=== PATIENT | male | born 1960 | race Caucasian/White ===

== ENCOUNTER 2022-12-28 10:54 | Emergency (ER) | payer MEDICAID, SELFPAY ==
[2022-12-28] VITALS (8 sets, daily range): BP systolic 125–156; BP diastolic 75–99; PULSE 63–100; RESP 16–20; TEMP 36.8; O2SAT 98–100; BMI 24.1
--- NOTE | 2022-12-28 11:38 | EXP.UTC ---
Discharge Plan Disposition Patient Disposition: Still a Patient Condition: Good Prescriptions Prescriptions: New sulfamethoxazole-trimethoprim [Bactrim DS] 800-160 mg tablet 1 tab PO BID 14 Days Qty: 28 0RF Referrals Follow up/Referrals: Provider,Referral, [Primary Care Provider] - See instructions Activity Restrictions/Add. Instructions Additional Instructions/Restrictions: I spoke with Dr. Bradford with [facility] urology at the [facility] is working to make an appointment with you with their clinic at [facility] with urology. If you have any worsening symptoms please drive straight to the emergency department [facility] otherwise they will make an appointment for you within the next week. Please take antibiotics as prescribed if you have worsening abdominal pain or any other concerns please follow-up either with at our emergency department or at [facility] emergency department. Clinical Impressions Clinical Impression: Bladder mass, Hydronephrosis of right kidney, UTI (urinary tract infection) Instructions Patient Instructions: DI for Urinary Tract Infection (UTI), DI for Urinary Tract Infection in Children Discharge ED Provider: Keiko Luna [facility] General Chief complaint: Urogenital-Male Stated complaint: blood in urine Mode of Arrival: Ambulatory Source of Information: Patient Limitations: No Limitations Time Seen by Provider: 12/28/22 11:15 Description of Symptoms (Recalled from Triage Doc. by RN): Patient states he went to the [facility] and spoke with the nurse about his symptoms and they sent him here for evaluation. Complaint of frequent urination that comes and goes for about 1 month. States in the past week he began to have burning and blood in his urine. Denies any pain or discomfort at this time. HEENT Symptoms (Recalled from RN notes): No Resp Symptoms (Recalled from RN notes): No Skin Symptoms (Recalled from RN notes): No MS Symptoms (Recalled from RN notes): No Functional Status (Recalled from RN notes): wnl History of Present Illness Provider Complaint: Patient states that for the last month or so he has noticed blood in his urine on and off States that two weeks ago he noticed again and then it went away but for the last couple of days he has been having a little burning with urination and noticed his urine was mostly blood States that he thought it would go away but hasnt it has got worse States that he stopped by the [facility] today and told them about his symptoms and they recommended he come here for evaluation States that he is not having any back pain just one little sore spot on his right hip bone area but doesnt think it is from that, Denies abdominal pain denies fever, denies chills just having bloody urine and burning at times when he urinates Related Data Previous Rx's Medication Instructions Recorded sulfamethoxazole 800 1 tab PO BID 14 days #28 tabs 12/28/22 mg-trimethoprim 160 mg tablet (Bactrim DS) Allergies Allergy/AdvReac Type Severity Reaction Status Date / Time No Known Allergies Allergy Verified 12/28/22 11:18 Worker's Comp Is this a Worker's Comp case?: No PFSH [facility] Disclaimer: The information contained in this section may have been updated after the patient was seen, as this information can be updated by other users. Social History (Updated 12/28/22 @ 15:09 by Keiko Luna MD) Smoking Status: Current every day smoker alcohol intake: never current occupational status: other Travel in the last 8 weeks: None ROS Obtained: Yes All systems reviewed & no additional complaints except as documented and Yes Systems reviewed as appropriate & no additional complaints except as documented Constitutional Constitutional: Reports system reviewed and no additional complaints, except as documented, Reports as per HPI, Denies body ache, Denies chills and Denies fever(s) ENT Ears, Nose, Mouth,
[2022-12-28 11:46] LABS: Apearance,Urine Clear (Clear); Color,Urine Red (Yellow); Glucose,Urine (UA) 5.5 (Negative); Ketones,Urine 7.8 (Negative); Protein,Urine 3+ (Negative); Specific Gravity, Urine 1.005 (1.005-1.030)
[2022-12-28 11:47] LABS: Bilirubin,Urine 3+ (Negative); Blood, Urine 2+ (Negative); UTC Leukocyte Esterase,Urine 3+ (Negative); UTC Nitrate,Urine Positive (Negative); Urobilinogen,Urine 1 EU/dl (0.2)
--- NOTE | 2022-12-28 12:10 | PC.NURSE ---
BLADDER SCAN [id number]
--- NOTE | 2022-12-28 12:47 | PC.NURSE ---
Assumed patient care at this time.
--- NOTE | 2022-12-28 13:02 | CT_ITS ---
FINAL REPORT TECHNIQUE: Postcontrast axial images through the abdomen and pelvis were performed. This study was performed with techniques to keep radiation doses as low as reasonably achievable, (ALARA). Individualized dose reduction techniques using automated exposure control or adjustment of mA and/or kV according to the patient's size were employed. CLINICAL HISTORY: R hydro, bladder mass bedside US, hematuria FINDINGS: Abdomen: The lung bases are clear. There is a 34 mm probable cyst in the medial right hepatic lobe. The spleen is unremarkable. The adrenals are normal. The pancreas is unremarkable. The kidneys enhance appropriately. The aorta is normal in caliber. There is no free fluid. There is moderate right hydronephrosis and hydroureter. Mild vascular calcification is identified. Pelvis: The appendix is not identified. There is a soft tissue mass along the right lateral bladder wall measuring 7.3 x 3.5 cm. Heterogeneous material is seen in the bladder, may represent blood clot. There is a 14 mm medial right external iliac node worrisome for metastatic adenopathy. Small inguinal nodes are identified. There is a lipoma in the right back. There is no free fluid, free air, or abscess. 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 Right external iliac nodes worrisome for metastatic adenopathy. Mild right hydronephrosis and hydroureter. Reviewed, Interpreted and Dictated by Michael Skaggs III, MD Transcribed by Tamra Seay Authenticated and [facility]
--- NOTE | 2022-12-28 13:03 | HMH.EDGENADL ---
Discharge Plan Disposition Patient Disposition: Still a Patient Condition: Good Prescriptions Prescriptions: New sulfamethoxazole-trimethoprim [Bactrim DS] 800-160 mg tablet 1 tab PO BID 14 Days Qty: 28 0RF Referrals Follow up/Referrals: Provider,Referral, [Primary Care Provider] - See instructions Activity Restrictions/Add. Instructions Additional Instructions/Restrictions: I spoke with Dr. Bradford with [facility] urology at the transfer center transfer center is working to make an appointment with you with their clinic at [facility] with urology. If you have any worsening symptoms please drive straight to the emergency department [facility] otherwise they will make an appointment for you within the next week. Please take antibiotics as prescribed if you have worsening abdominal pain or any other concerns please follow-up either with at our emergency department or at [facility] emergency department. Clinical Impressions Clinical Impression: Bladder mass, Hydronephrosis of right kidney, UTI (urinary tract infection) Instructions Patient Instructions: DI for Urinary Tract Infection (UTI), DI for Urinary Tract Infection in Children Discharge ED Provider: Keiko Luna General Adult HPI General Chief complaint: Urogenital-Male Stated complaint: blood in urine Time Seen by Provider: 12/28/22 11:15 Mode of Arrival: Ambulatory Limitations: No Limitations Description of Symptoms (Recalled from ER Triage Doc. by RN): PT REPORTS INTERMITTENT BLOOD IN URINE. STARTED ABOUT 2-3 WEEKS AGO, RESOLVED. STARTED AGAIN SUNDAY NIGHT IN TO SUNDAY AM. REPORTS DIFFICULTY WITH STARTING TO URINATE, OCCASIONAL CLOTS AND MILD FLANK PAIN. REPORTS SOME BURNING WITH URINATION. History of Present Illness HPI narrative: Patient is a 62-year-old male who presents today with painless hematuria that started 2 to 3 weeks ago most recently a few days ago has some little bit of dysuria associated with this. Denies any weight loss any night sweats he also never goes to the doctor and has no medical problems that he is aware of. Was at the [facility] and was diagnosed with a UTI but given the concern for malignancy was sent to the emergency department for further evaluation and treatment. Related Data Previous Rx's Medication Instructions Recorded sulfamethoxazole 800 1 tab PO BID 14 days #28 tabs 12/28/22 mg-trimethoprim 160 mg tablet (Bactrim DS) Allergies Allergy/AdvReac Type Severity Reaction Status Date / Time No Known Allergies Allergy Verified 12/28/22 11:18 PFSH PFSH Disclaimer: The information contained in this section may have been updated after the patient was seen, as this information can be updated by other users. Social History Smoking Status: Current every day smoker alcohol intake: never current occupational status: other Travel in the last 8 weeks: None ROS Obtained: Yes All systems reviewed & no additional complaints except as documented Physical Exam General General appearance: alert and in no apparent distress Respiratory Respiratory exam: Present normal lung sounds bilaterally Cardiovascular Cardiovascular exam: Present regular rate; Absent tachycardia Abdominal Exam Abdominal exam: Present soft; Absent distention, tenderness, guarding, rebound, rigidity or normal bowel sounds Neurological Exam Neurological exam: Present alert and oriented X3 Medical Decision Making Maximilian Inquiry Pt receiving controlled substance: No Vital Signs: 12/28/22 10:55 12/28/22 12:01 12/28/22 12:30 Temperature 98.2 F 98.2 F Temperature Source Oral Oral Pulse Rate 69 Pulse Rate [Radial] 100 H 83 Respiratory Rate 18 18 18 Blood Pressure 125/82 Blood Pressure [Right Arm] 147/91 H 146/87 H Blood Pressure Mean 96 Blood Pressure Mean [Right Arm] 109 106 Blood Pressure Source [Right Arm] Automatic Cuff Automatic Cuff Blood Pressure Position [Right Arm] Sitting Sit
--- NOTE | 2022-12-28 13:07 | PC.NURSE ---
Rounded on patient; provided pillow, warm blanket, and TV remote. Nothing needed at this time. Call light within reach of patient
[2022-12-28 13:16] LABS: Basophils % 0.2 % (0.1-2.0); Chloride 88 mmol/L (98-107); Eosinophils % 0.3 % (0.1-12.0); Hematocrit 30.2 % (42.0-52.0); Hemoglobin 10.8 g/dL (14.1-18.0); Lymphocytes # 1.2 K/mm3 (0.7-4.5); Mean Corpuscular HGB Conc 35.8 g/dL (31.8-35.4); Mean Corpuscular Hemoglobin 32.6 pg (27.0-31.2); Mean Corpuscular Volume 91.1 fl (80-94); Mean Platelet Volume 9.8 fl (7.4-10.4); Monocytes # 0.8 K/mm3 (0.1-1.0); Monocytes % 10.4 % (1.7-9.3); Neutrophils # 5.4 K/mm3 (1.8-7.8); Platelet Count 268 K/mm3 (142-424); Red Blood Count 3.31 M/mm3 (4.60-6.20); Sodium 118 mmol/L (136-145); White Blood Count 7.4 K/mm3 (4.8-10.8)
[2022-12-28 13:18] LABS: Blood Urea Nitrogen 12 mg/dl (9-20); Creatinine Clearance Estimated 92 mL/min (50-200); Estimated Glomerular Filt Rate 114 ml/min (>60); GFR (African American) 137 ML/MIN (>60)
[2022-12-28 13:19] LABS: Alanine Aminotransferase 32 U/L (12-78); Albumin Level 4.2 g/dl (3.5-5.0); Albumin/Globulin Ratio 1.7 (1.1-1.8); Alkaline Phosphatase 69 U/L (38-126); Aspartate Amino Transferase 55 U/L (17-59); Bilirubin,Total 1.1 mg/dl (0.2-1.3); Calcium 8.6 mg/dl (8.4-10.2); Carbon Dioxide 25 mmol/L (22.0-30.0); Globulin 2.5 g/dL (1.3-3.2); Glucose 110 mg/dl (74-100); Total Protein,Serum 6.7 g/dl (6.3-8.2)
--- NOTE | 2022-12-28 13:22 | PC.NURSE ---
Pt to CT
--- NOTE | 2022-12-28 13:32 | PC.NURSE ---
Asked MD if he needs blood cultures at this time. stated he is not ordering them.
--- NOTE | 2022-12-28 13:35 | PC.NURSE ---
Pt back from CT
--- NOTE | 2022-12-28 13:40 | PC.NURSE ---
Rounded on patient; call light within reach.
--- NOTE | 2022-12-28 14:18 | PC.NURSE ---
placed call to [facility] for follow up and consult with urology
== END 2022-12-28 15:27 | disposition still patient (30) ==
LOC: UTC 11:45 → ER 11:51
PROVIDERS: Nurse Practitioner; Emergency Provider Student in an Organized Health Care Education/Training Program
DX: D49.4 Neoplasm of unspecified behavior of bladder (principal); N13.30 Unspecified hydronephrosis; N39.0 Urinary tract infection, site not specified; B96.89 Other specified bacterial agents as the cause of diseases classified elsewhere; E87.1 Hypo-osmolality and hyponatremia; F17.210 Nicotine dependence, cigarettes, uncomplicated
CPT/HCPCS: 74177; 80053; 81003; 85025; 87086; 96361; 96374; 99285; J0696; Q9967